=== PATIENT | male | born 1980 | race Caucasian/White ===

== ENCOUNTER 2021-06-23 10:53 | Emergency (ER) | payer SELFPAY ==
[~2021-06-23] VITALS: Ht 167.6 cm; Wt 111.1 kg
[2021-06-23 11:03] VITALS: BP 153/97
--- NOTE | 2021-06-23 12:05 | NUR ---
NOVEL SWAB COLLECTED AND SENT TO LAB.
--- NOTE | 2021-06-23 12:15 | NUR ---
Patient discharged with v/s stable. Written and verbal after care instructions given and explained. Patient verbalized understanding. Ambulatory with steady gait. All questions addressed prior to discharge. Advised to follow up with PMD.
== END 2021-06-23 12:15 | disposition home or self-care (01) ==
LOC: MED 10:53
DX: R05 Cough (principal); F17.210 Nicotine dependence, cigarettes, uncomplicated; Z71.6 Tobacco abuse counseling; Z20.822 Contact with and (suspected) exposure to COVID-19
CPT/HCPCS: 99283; U0003